=== PATIENT | male | born 1960 | race Caucasian/White ===

== ENCOUNTER → 2018-09-18 | Outpatient (CLI) | payer OTHER ==
[~2018-09-18] MED LIST: DIAZEPAM 10 MG TABLET. ONE; HEPARIN for ARTERIAL LINE 1,500 ML ONE; IOHEXOL 350 MG/ML 100 ML VIAL. ONE; IOHEXOL 350 MG/ML 50 ML VIAL. ONE; IV NORMAL SALINE 500ML BAG 500 ML ONE; LIDOCAINE 1% Multi-Dose 50 ML VIAL. ONE; LIDOCAINE 1%/EPI 1:100,000 20 ML VIAL. ONE; MIDAZOLAM HCL/PF 2 MG/2 ML VIAL. ONE; fentaNYL PF VIAL 100 MCG/2 ML VIAL ONE
--- NOTE | 2018-09-18 16:14 | PCVCINTER ---
EXAM: 1. AORTOGRAM AND BILATERAL ILIOFEMORAL ANGIOGRAPHY 2. BILATERAL RENAL ANGIOGRAPHY 3. PLACEMENT OF RIGHT COMMON FEMORAL VEIN SHEATH USING ULTRASOUND AND FLUOROSCOPIC GUIDANCE INDICATION: Peripheral arterial disease. Leg pain. Right and left heart catheter to follow. Hypertension. Renal atherosclerosis. PROCEDURE: Procedure and risks of the procedures listed above were discussed with the patient and consent obtained. Risks including but not limited to bleeding, infection, stroke, vascular injury, neurologic injury, embolization, allergic reactions, bowel ischemia requiring resection, and contrast-induced nephropathy requiring dialysis were discussed as appropriate and consent obtained. Patient was placed on the angiography table. IV conscious sedation was used throughout procedure with appropriate monitoring from 9:15 AM through 10:00 AM. The right groin was prepped and draped in the normal sterile fashion. Ultrasound was used to interrogate the right groin and demonstrate the right common femoral artery. An ultrasound image was saved. Under ultrasound guidance a 21 gauge needle was used to gain access into the right common femoral artery and a 5F vascular sheath was placed. Catheter was placed into the suprarenal abdominal aorta and abdominal aortic angiogram performed. Catheter was placed into the distal abdominal aorta and bilateral iliofemoral angiography performed. Catheter was placed into the right renal arteries and right renal angiograms performed. Catheter was placed into the left renal arteries and left renal angiograms performed. Under ultrasound and fluoroscopic guidance I gain access into the right common femoral vein the 7 [place] sheath was placed in satisfactory position. Dr. Silverio joined the procedure and he performed coronary angiography. Please see his separate dictation for details. Catheters and wires removed. Sheath was removed and hemostasis obtained using the FISH device. No immediate complications. FINDINGS: Aortogram: There are 2 right and 2 left renal arteries. Minimal plaque infrarenal abdominal aorta without significant stenosis. Bilateral iliofemoral angiography: The right and left common and external iliac arteries show good patency throughout. Both internal iliac arteries are patent. The right and left common femoral and profunda femoral arteries are patent. Visualized portions of the upper superficial femoral arteries are patent bilaterally. Right renal artery: There are 2 renal arteries on the right both of which show minimal plaque at their origins without significant stenosis. Left renal artery: There are 2 left renal arteries both showing minimal plaque at their origins without significant stenosis. IMPRESSION: No significant renal artery stenosis. No aortoiliac or iliofemoral stenosis identified. Satisfactory placement of right common femoral vein sheath. LOC:[id number]
--- NOTE | 2018-09-19 10:34 | PCVCINTER ---
APPROVED REPORT Study performed: 09/18/2018 09:50:52 Patient Details Patient Status: Out-Patient Room #: 1 The patient is a 58 year-old Male Event Personnel Nusrat Chowdhury MD, Jose Manuel Campoverde RT(R), Dasha Lai RT(R)(), Homer Barnett RN Risk Factors Arterial HypertensionDysplipidemia (Type: 1), HypercholesterolemiaPhysical Activity, Last Creatanine 0.9Tobacco History (Former) Previous Procedures/Diagnoses LV dysfunction, Hypertension Procedure Narrative The patient was brought electively to the Cardiac Catheterization Laboratory and was prepped and draped in a sterile manner. The right femoral was infiltrated with 1% Lidocaine subcutaneous anesthesia. A Right Heart Catheterization was performed with a 7 Fr. [place] catheter and pressure were recorded. Cardiac outputs were obtained by the Thermal Dilution method. A 6 sheath was inserted into the right femoral artery. Coronary angiography was performed using coronary diagnostic catheters. The right coronary system was accessed and visualized with a JR4 catheter. The left coronary system was accessed and visualized with a JL4 catheter. The left ventricle was accessed and visualized with a Straight Pigtail catheter. Left ventriculogram was performed in EDOUARD projection. Closure device was deployed with a 6 Fr FISH. Hemostasis was obtained with manual pressure following sheath removal without any complications. The patient tolerated the procedure well and there were no complications associated with the procedure. There was no hematoma. Hemodynamics The right atrial mean pressure is 9 mmHg. The right ventricular pressure is 42/4 mmHg. The pulmonary artery pressure is 35/16 mmHg with a mean of 23 mmHg. The mean pulmonary capillary wedge pressure is 14 mmHg. The aortic pressure is 108/68 mmHg with a mean of 86 mmHg. The left ventricular pressure is 89/4 mmHg with a mean of 15 mmHg. The cardiac output and index were assessed using Thermal. The cardiac output using thermo method is 5.31 L/min. The cardiac index using thermo method is 2.3 L/min/m2. Conclusion #1 successful right heart catheterization with hemodynamics as noted above. #2 mildly dilated left ventricle with mild to moderate global hypokinesis EF 35-40% range. (Interval improvement noted) #3 left main moderate size giving rise to LAD and circumflex no occlusive disease #4 LAD diagonal system mildly diseased widely patent #5 small nondominant circumflex no occlusive disease #6 large dominant right coronary artery no occlusive disease Recommendations and plan: Patient has undergone medical therapy with aggressive diuresis prior to this catheterization. Hemodynamics markedly improved as compared to prior echo findings. LV function also improved. This LV dysfunction is idiopathic in nature. It is not obstructive for coronary occlusive disease. Continue aggressive risk factor modification and current medical therapy. Follow-up scheduled 2 months with repeat echo Doppler to assess for continued improvement in LV function and pulmonary pressures. Continue relative fluid and sodium restriction.
== END | disposition home or self-care (01) ==
LOC: PCVCINTER 08:02
PROVIDERS: ATTEND Internal Medicine Cardiovascular Disease
DX: I70.1 Atherosclerosis of renal artery (principal); I25.10 Atherosclerotic heart disease of native coronary artery without angina pectoris; I10 Essential (primary) hypertension; I70.0 Atherosclerosis of aorta; Z98.890 Other specified postprocedural states; Z82.49 Family history of ischemic heart disease and other diseases of the circulatory system; Z83.6 Family history of other diseases of the respiratory system; Z87.891 Personal history of nicotine dependence; Z72.89 Other problems related to lifestyle; Z88.5 Allergy status to narcotic agent; I42.9 Cardiomyopathy, unspecified; Z79.899 Other long term (current) drug therapy
CPT/HCPCS: 36252; 75716; 76937; 93460; 99152; 99153; C1751; C1760; C1769; C1885; C1894; J1644; J2250; J3010; J3490; J7040; Q9967; 75630

== ENCOUNTER → 2018-12-18 | Outpatient (CLI) | payer OTHER ==
--- NOTE | 2018-12-18 16:44 | PCVCIMAG ---
APPROVED REPORT Study performed: 12/18/2018 13:55:50 EXAM: Comprehensive 2D, Doppler, and color-flow Echocardiogram Patient Location: Echo lab Status: routine BSA: 2.30 HR: 72 bpmBP: 108/70 mmHg Rhythm: NSR Other Information Study Quality: Adequate Risk Factors: Cardiac Risk Factors: HTN Indications Cardiomyopathy assess PAP 2D Dimensions IVSd: 13.84 (7-11mm) LVDd: 48.27 mm PWd: 13.13 (7-11mm)Ascending Ao: 35.35 (22-36mm) LVDs: 38.94 (25-40mm) Left Atrium: 42.77 (27-40mm) Aortic Root: 33.09 mm LV Single Plane 4CH: 36.45 % LV Single Plane 2CH: 45.91 % Biplane EF: 40.4 % Volumes Left Atrial Volume (Systole) Single Plane 4CH: 44.11 mLSingle Plane 2CH: 79.67 mL LA ESV Index: 26.00 mL/m2 Aortic Valve AoV Peak Vishal.: 1.36 m/s AO Peak Gr.: 7.40 mmHgLVOT Max P.31 mmHg LVOT Max V: 1.04 m/s Mitral Valve E/A Ratio: 0.8 MV Decel. Time: 233.59 ms MV E Max Vishal.: 0.48 m/s MV A Vishal.: 0.58 m/s IVRT: 124.57 ms Pulmonary Valve PV Peak Vishal.: 1.13 m/sPV Peak Gr.: 5.09 mmHg Pulmonary Vein P Vein S: 0.31 m/sP Vein A: 0.30 m/s P Vein D: 0.40 m/sP Vein A Dur.: 114.2 msec P Vein S/D Ratio: 0.77 Tricuspid Valve TR Peak Vishal.: 2.52 m/s TR Peak Gr.: 25.33 mmHg TV Vmax: 0.71 m/s Left Ventricle The left ventricle is normal size. Mild concentric left ventricular hypertrophy. Left ventricular systolic function is moderately decreased. Discordant septal motion. LVEF is 40 -45% Grade I - abnormal relaxation pattern. Right Ventricle The right ventricle is normal size. The right ventricular systolic function is normal. Atria The left atrium size is normal. The right atrium size is normal. Aortic Valve The aortic valve is normal in structure. No aortic regurgitation is present. There is no aortic valvular stenosis. Mitral Valve The mitral valve is normal in structure. Trace mitral regurgitation. No evidence of mitral valve stenosis. Tricuspid Valve The tricuspid valve is normal in structure. Mild tricuspid regurgitation with PAP of 32 mmHg. Pulmonic Valve The pulmonary valve is normal in structure. There is no pulmonic valvular regurgitation. Great Vessels The aortic root is normal in size. IVC is normal in size and collapses >50% with inspiration. Pericardium There is no pericardial effusion. There is no pleural effusion. <Conclusion> The left ventricle is normal size. LVEF is 40 -45% Grade I - abnormal relaxation pattern. The left atrium size is normal. The aortic valve is normal in structure. Trace mitral regurgitation. Mild tricuspid regurgitation with PAP of 32 mmHg. The aortic root is normal in size. There is no pericardial effusion.
== END | disposition home or self-care (01) ==
LOC: PCVCIMAG 13:00
PROVIDERS: ATTEND Internal Medicine Cardiovascular Disease
DX: I07.1 Rheumatic tricuspid insufficiency (principal); G47.33 Obstructive sleep apnea (adult) (pediatric); I10 Essential (primary) hypertension; I42.9 Cardiomyopathy, unspecified; R53.83 Other fatigue; R06.02 Shortness of breath
CPT/HCPCS: 93306

== ENCOUNTER → 2019-09-09 | Outpatient (CLI) | payer OTHER ==
--- NOTE | 2019-09-09 12:56 | PCVCIMAG ---
APPROVED REPORT Study performed: 09/09/2019 09:52:13 EXAM: Limited 2D Echocardiogram Patient Location: Echo lab Room #: 3Status: routine BSA: 2.28 HR: 71 bpmBP: 122/80 mmHg Rhythm: NSR Other Information Study Quality: Adequate Risk Factors: Cardiac Risk Factors: HTN, Hyperlipidemia Indications CAD 2D Dimensions IVSd: 13.20 (7-11mm) LVDd: 48.42 mm PWd: 12.76 (7-11mm) LVDs: 38.53 (25-40mm) Left Atrium: 38.95 (27-40mm) LV Single Plane 4CH: 44.71 % LV Single Plane 2CH: 50.11 % Biplane EF: 47.3 % Volumes Left Atrial Volume (Systole) Single Plane 4CH: 27.99 mLSingle Plane 2CH: 54.15 mL LA ESV Index: 18.00 mL/m2 Left Ventricle The left ventricle is normal size. Mild concentric left ventricular hypertrophy. Left ventricular systolic function is mild to moderately decreased. LVEF is 45%. Mild diastolic dysfunction is present (impaired relaxation pattern). Right Ventricle The right ventricle is normal size. The right ventricular systolic function is normal. Atria The left atrium size is normal. The right atrium size is normal. Aortic Valve The aortic valve is normal in structure. Mitral Valve The mitral valve is normal in structure. Tricuspid Valve The tricuspid valve is normal in structure. Pulmonic Valve The pulmonary valve is normal in structure. Great Vessels The aortic root is normal in size. IVC is not well visualized. Pericardium There is no pericardial effusion. <Conclusion> The left ventricle is normal size. Left ventricular systolic function is mild to moderately decreased. LVEF is 45%. Mild diastolic dysfunction is present (impaired relaxation pattern). The right ventricle is normal size. The left atrium size is normal. The aortic valve is normal in structure. The aortic root is normal in size. There is no pericardial effusion.
== END | disposition home or self-care (01) ==
LOC: PCVCIMAG 09:40
PROVIDERS: ATTEND Internal Medicine Cardiovascular Disease
DX: I11.9 Hypertensive heart disease without heart failure (principal); I25.10 Atherosclerotic heart disease of native coronary artery without angina pectoris
CPT/HCPCS: 93308